=== PATIENT | female | born 1960 | race Caucasian/White ===

== ENCOUNTER 2018-05-21 12:09 | Outpatient (CLI) | payer BC ==
[~2018-05-21] VITALS: Ht 157.5 cm; Wt 56.2 kg
[~2018-05-21 12:09] MED LIST: AMOX500C2 PO; FENO145T20 PO; PRD20T PO
[2018-05-21] MEDS ORDERED: FENO145T37 PO (13:12)
== END 2018-05-21 13:26 ==
LOC: PREOP 12:09
PROVIDERS: ATTEND Surgery
DX: Z01.818 Encounter for other preprocedural examination (principal)

== ENCOUNTER 2018-05-22 08:56 | Day surgery (SDC) | payer BC, OTHER ==
[~2018-05-22] VITALS: Ht 157.5 cm; Wt 56.2 kg
[~2018-05-22 08:56] MED LIST changes: +FENO145T37 PO
[2018-05-22] MEDS ORDERED: LACTATED RINGERS 1,000 ML IV ONE (09:10)
[2018-05-22] MEDS ORDERED: LACTATED RINGERS 1,000 ML IV STA (09:14)
[2018-05-22 09:25] VITALS: BP 137/91
--- OUTSIDE RECORDS SUMMARY | 2018-05-22 09:57 | XMS REPORT | Continuity of Care Document ---
Author Author [facility] Organization [facility] Address Unknown Phone Unavailable Allergies There is no data. Medications There is no data. Problems There is no data. Procedures There is no data. Results There is no data. Encounters ACCT No. Visit Date/Time Discharge Status Pt. Type Provider Facility Loc./Unit Complaint [id number] 12/07/2013 11:49:00 12/07/2013 13:23:00 [facility] Emergency
--- NOTE | 2018-05-22 09:58 | Progress Note-Pre Operative ---
Pre-Operative Progress Note H&P Reviewed The H&P was reviewed, patient examined and no changes noted. Time Seen by Provider: 09:56 Date H&P Reviewed: May 22, 2018 Time H&P Reviewed: 09:57 Pre-Operative Diagnosis: rectal bleed ANDI PONCE DO May 22, 2018 09:58
[2018-05-22] MEDS ORDERED: MIDAZOLAM 2 MG/2 ML (VERSED) VIAL ONE (10:30)
[2018-05-22] MEDS ORDERED: PROPOFOL INJECTION 50 ML IV ONE (10:30)
--- NOTE | 2018-05-22 11:12 | Progress Note-Post Operative ---
Post-Operative Progess Note Surgeon (s)/Insurance Verification Specialist (s) Surgeon ANDI PONCE DO Insurance Verification Specialist: none Pre-Operative Diagnosis rectal bleed Post-Operative Diagnosis Colon Polyps Cecal mass possible Lipoma Ulcers Inflammation Diverticula Internal Hemorrhoids Procedure & Operative Findings Date of Procedure 05/22/18 Procedure Performed/Findings Colon with snare Colon with hot biopsy Anesthesia Type IV sedation by MULTIMEDIA JOURNALIST Estimated Blood Loss Estimated blood loss (mL): scant Specimens/Packing Specimens Removed Rectal Polyp x 2 Sigmoid Polyp Transverse colon polyp Biopsy of ulcer x 2 Biopsy of inflamation in Sigmoid colon ANDI PONCE DO May 22, 2018 11:12
--- NOTE | 2018-05-22 11:14 | Endoscopy Discharge Instruct ---
Endo Procedure/Findings Findings 1.: Polyp 2.: Diverticulosis 3.: Colitis 4.: Internal Hemorrhoids Discharge Instructions - Activity: You might feel a little sleepy until tomorrow. This is due to the medicine you received to relax you. Until tomorrow, you should: NOT drive a car, operate machinery or power tools. NOT drink any alcoholic beverages. NOT make any important decisions or sign importortant papers. Do not return to work until tomorrow, unless otherwise instructed. Resume previous activities tomorrow. Diet: Start by taking liquids. If you tolerate liquids, advance to solid food. Make an appointment for 1 week. Instructions: 1.: Colonoscopy in 1 year Notify Physician - If you experience excessive bleeding, unusual abdominal pain, fever, or chest pain, contact your doctor immediately. Follow-Up: - I have received and understand the above instructions and will call my doctor if I have any further questions. Patient Signature Date Nurse Signature Other (Relationship) ANDI PONCE DO May 22, 2018 11:14
[2018-05-22 11:40] VITALS: BP 117/67
--- NOTE | 2018-05-22 11:53 | Anesthesia-General Post-Op ---
MAC Patient Condition Mental Status/LOC: Same as Preop Cardiovascular: Satisfactory Nausea/Vomiting: Absent Respiratory: Satisfactory Pain: Controlled Complications: Absent Post Op Complications Complications None Follow Up Care/Instructions Patient Instructions None needed. Anesthesiology Discharge Order Discharge Order Patient is doing well, no complaints, stable vital signs, no apparent adverse anesthesia problems. AMY VOSS DO May 22, 2018 11:53
[2018-05-22 11:54] VITALS: BP 117/67
--- NOTE | 2018-05-22 13:40 | OPERATIVE REPORT ---
DATE OF SERVICE: 05/22/2018 PREOPERATIVE DIAGNOSIS: Rectal bleed. POSTOPERATIVE DIAGNOSES: 1. Colon polyps. 2. Mass in the cecum, question lipoma. 3. All ulcers in the colon. 4. Diverticula. 5. Inflammation. 6. Internal hemorrhoids. PROCEDURES: 1. Colonoscopy with snare polypectomy. 2. Colonoscopy with hot biopsy. SURGEON: Napoleon Aguero DO. VISUALLY IMPAIRED TEACHER: None. ANESTHESIA: IV sedation by CALENDER MACHINE OPERATOR HELPER. BLOOD LOSS: Scant. SPECIMEN: Rectal polyp x 2, transverse colon polyp, sigmoid colon polyp and biopsy of ulcers x 2 as well as biopsy of inflammation. INDICATION FOR PROCEDURE: The patient is a 57-year-old female who having some rectal bleeding and has never had a colonoscopy and needs one. FINDINGS: The patient had multiple polyps seen, a large mass right at the ileocecal area and had two ulcers on it. She had some inflammation in the sigmoid and descending colon. She had some diverticula and she had some internal hemorrhoids. PROCEDURE NOTE: After informed consent was obtained, the patient was brought to the endoscopy suite and placed in the left lateral decubitus position. She was administered IV sedation by the CALENDER MACHINE OPERATOR HELPER who then monitored her vitals the entire time, heart rate, blood pressure and pulse ox and the scope was inserted, started pushing in, on the way in noted an immediate polyp in the rectum, did a snare polypectomy of this and then continued up, noted some inflammation in the sigmoid and descending colon, also some diverticula and took picture of this, continued up and then in the transverse colon, saw another flat polyp, did a hot snare polypectomy of this and then continued down to the ascending colon and just outside the cecum saw what looked like a large lipoma possibly near the area of the ileocecal valve, took a picture of this and then on it noted, two ulcers, took a picture of the ulcers and then did hot biopsies of these ulcers, then pushed in, took a picture of the appendiceal orifice and then able to get into the terminal ileum and took a picture in the terminal ileum. The mass did not look like it was coming from the terminal ileum. Terminal ileum looked normal. At this point, I then slowly withdrew the scope insufflating to look circumferentially at the amin looking at the cecum, up the ascending colon to the hepatic flexure and then down the transverse colon, the splenic flexure, into the descending colon, into the sigmoid and in the sigmoid, saw a polyp, did a snare polypectomy of this and then elected to do biopsy of the area of inflammation in the sigmoid colon, then pulled back into the rectum, retroflexed the rectal vault, saw some internal hemorrhoids, took a picture and then noted another polyp and did a snare polypectomy of this as well. Removed the scope. The patient tolerated the procedure. She was then recovered in an endoscopy suite. Job ID: [id number] DocumentID: [id number] Dictated Date: 05/22/2018 11:20:17 Acidity Tester Date: 05/22/2018 13:39:27 Dictated By: NAPOLEON AGUERO DO
== END 2018-05-22 11:58 | disposition home or self-care (01) ==
LOC: ENDO 08:56
PROVIDERS: ATTEND Surgery
DX: D12.3 Benign neoplasm of transverse colon (principal); D12.8 Benign neoplasm of rectum; K52.9 Noninfective gastroenteritis and colitis, unspecified; K63.5 Polyp of colon; K62.1 Rectal polyp; K63.3 Ulcer of intestine; K57.30 Diverticulosis of large intestine without perforation or abscess without bleeding; K64.8 Other hemorrhoids; E78.00 Pure hypercholesterolemia, unspecified; E78.5 Hyperlipidemia, unspecified; R19.7 Diarrhea, unspecified; F17.210 Nicotine dependence, cigarettes, uncomplicated; Z88.0 Allergy status to penicillin; Z79.899 Other long term (current) drug therapy
CPT/HCPCS: 88305

== ENCOUNTER → 2018-06-05 | Outpatient (CLI) | payer OTHER ==
[~2018-06-05] MED LIST changes: +RECEIVED CONTRAST 20 ML VIAL IV SCH
[2018-06-05 09:45] LABS: BUN/CREATININE RATIO 16; CREATININE SERUM 0.77 MG/DL (0.60-1.30); GFR ESTIMATED > 60
[2018-06-05] MEDS: IOHEXOL 350 MG/ML 100 ML (OMNIPAQUE 350) VIAL IV ONE (09:56)
[2018-06-05] MEDS: BARIUM SUSPENSION 2.1% (VANILLA SILQ) 450 ML PO ONE (09:57)
[2018-06-05] MEDS: NS 100 ML (IVPB) BAG IV ONE (09:57)
--- NOTE | 2018-06-05 10:24 | Diagnostic Imaging Report ---
PROCEDURE: CT abdomen and pelvis with contrast. TECHNIQUE: Multiple contiguous axial images were obtained through the abdomen and pelvis after administration of intravenous contrast. INDICATION: Pelvic pain and diarrhea. COMPARISON: No prior studies are available for comparison. FINDINGS: The heart appears to be enlarged. The lung bases are clear. The liver demonstrates generalized low density consistent with hepatic steatosis. No discrete liver mass is seen. The gallbladder is surgically absent. No biliary duct dilatation is seen. The pancreas and spleen are unremarkable. No adrenal mass is identified. Kidneys are unremarkable. Aorta is nonaneurysmal. No central retroperitoneal or mesenteric lymphadenopathy is seen. Bowel loops appear to be normal in caliber. There is a circumscribed fat density mass in the mid ascending colon measuring 3.9 x 3.7 cm consistent with a lipoma. This is just distal to the cecum. Small bowel loops are normal in caliber. There is no ascites. There is diverticulosis of the sigmoid but no evidence of acute diverticulitis. The bladder is unremarkable. No pelvic lymphadenopathy is seen. IMPRESSION: 1. Hepatic steatosis. 2. 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 3. Uncomplicated diverticulosis. Dictated by: Dictated on workstation # [id number]
== END ==
LOC: RAD 09:12
PROVIDERS: ATTEND Surgery
DX: K76.0 Fatty (change of) liver, not elsewhere classified (principal); K57.30 Diverticulosis of large intestine without perforation or abscess without bleeding; K63.89 Other specified diseases of intestine; Z90.49 Acquired absence of other specified parts of digestive tract
CPT/HCPCS: 36415; 74177; 82565; 84520